=== PATIENT | female | born 1975 | race Caucasian/White ===

== ENCOUNTER 2019-06-14 16:33 | Inpatient (IN) | payer OTHER ==
[2019-06-14] MEDS ORDERED: SODIUM CHLORIDE 0.9% 1,000 ML IV STA ×2 (16:58→18:40)
[2019-06-14] MEDS ORDERED: LORazepam 2 MG/ML INJ IV STA ×2 (17:02→20:20)
[2019-06-14 17:38] LABS: Basophils % (A) 0 %; Eosinophils # (A) 0.1 k/uL (0-0.7); Eosinophils % (A) 1 %; HCT 45.8 % (34.0-46.0); Lymphocytes # (A) 1.5 k/uL (1.0-4.8); Lymphocytes % (A) 10 %; MCH 30.3 pg (25.0-35.0); MCHC 32.7 g/dL (31.0-37.0); MCV 92.8 fL (80.0-100.0); Mean Platelet Volume 7.3; Monocytes # (A) 0.8 k/uL (0-1.0); Monocytes % (A) 5 %; Neutrophils # (A) 13.5 k/uL (1.3-7.7); Neutrophils % (A) 84 %; Platelet Count 243 k/uL (150-450); RBC 4.94 m/uL (3.80-5.40); RDW 13.2 % (11.5-15.5); WBC 16.1 k/uL (3.8-10.6)
[2019-06-14 17:53] LABS: Amphetamine Screen,Urine Not Detected (NotDetected); Barbiturate Screen,Urine Not Detected (NotDetected); Benzodiazepines Screen,Urine Not Detected (NotDetected); Cocaine Screen,Urine Not Detected (NotDetected); Methadone Screen, Urine Not Detected (NotDetected); Opiate Screen,Urine Not Detected (NotDetected); Oxycodone Screen, Urine Not Detected (NotDetected); Phencyclidine Screen,Urine Not Detected (NotDetected); Tricyclic Antidepressant,Urine Not Detected (NotDetected); Urn Cannabinoid Scrn Not Detected (NotDetected)
[2019-06-14 17:55] LABS: ALT 65 U/L (9-52); AST 436 U/L (14-36); Acetaminophen <10.0 ug/mL; African American GFR (CKD) >90 (>60 ml/min/1.73 sqM); Albumin 4.6 g/dL (3.5-5.0); Alcohol <10 mg/dL; Alkaline Phosphatase 92 U/L (38-126); Anion Gap 8 mmol/L; Blood Urea Nitrogen 15 mg/dL (7-17); Calcium 9.9 mg/dL (8.4-10.2); Carbon Dioxide 25 mmol/L (22-30); Chloride 108 mmol/L (98-107); Glucose 108 mg/dL (74-99); Potassium 3.9 mmol/L (3.5-5.1); Salicylate <1.0 mg/dL; Sodium 141 mmol/L (137-145); Total Bilirubin 0.9 mg/dL (0.2-1.3); Total Protein 7.7 g/dL (6.3-8.2)
--- NOTE | 2019-06-14 18:01 | ED ---
Overdose HPI - General Chief Complaint: Overdose Stated Complaint: overdose Time Seen by Provider: 06/14/19 16:40 Source: patient, family Mode of arrival: ambulatory Limitations: no limitations - History of Present Illness Initial Comments: The patient is a 44-year-old female who presents to the emergency department after she took 50 sleep aid tablets at home last night at 10 PM. They are the [employer] brand Sleep-Aid for which the active ingredient is 50 mg of Benadryl. The patient went to sleep last night. The next thing she remembers is waking up at noon today on the floor. She was hallucinating at the time. She thought her had come from home from work because she thought people were in the house. She had palpitations and felt very hot. She is unsure if she hit her head. She is denying any pain. She does have ecchymosis noted to her left forearm and left hip. She states that she took these medications in an attempt to hurt herself. States she's been feeling depressed and wanted to . She was in therapy as a child. Denies any recent treatment for mental health issues. States that today she does not feel like hurting herself. She denies any homicidal ideations. States that the hallucinations have passed. She denies any headaches or visual changes. No neck pain or stiffness. No fevers or chills. Denies any chest pain or shortness of breath. She denies any abdominal pain, nausea or vomiting. Denies any changes in her urination to include dysuria, hematuria of difficulty voiding. Denies any changes in her bowel movements to include diarrhea constipation, melanotic stools or hematochezia. She did not take any other medications last night. Does not take any prescribed medications. Denies use of alcohol and ilicit drugs. There are no other alleviating, precipitating or modifying factors - Related Data Home Medications Medication Instructions Recorded Confirmed Ranitidine HCl [Zantac] 75 mg PO DAILY 06/14/19 06/14/19 Allergies Allergy/AdvReac Type Severity Reaction Status Date / Time No Known Allergies Allergy Verified 06/16/19 16:54 Review of Systems ROS Statement: Those systems with pertinent positive or pertinent negative responses have been documented in the HPI. ROS Other: All systems not noted in ROS Statement are negative. Past Medical History Past Medical History: No Reported History History of Any Multi-Drug Resistant Organisms: None Reported Past Surgical History: No Surgical Hx Reported Past Anesthesia/Blood Transfusion Reactions: No Reported Reaction Past Psychological History: No Psychological Hx Reported Smoking Status: Current every day smoker Past Alcohol Use History: Occasional Past Drug Use History: None Reported - Past Family History Mother Family Medical History: Cancer, Hypertension, Thyroid Disorder Father Family Medical History: Cancer, Hypertension General Exam Limitations: no limitations General appearance: alert, anxious Head exam: Present: atraumatic, normocephalic, normal inspection Eye exam: Present: normal appearance, EOMI, conjunctival injection. Absent: scleral icterus, periorbital swelling Pupils: Present: mydriatic ENT exam: Present: mucous membranes dry Neck exam: Present: normal inspection. Absent: tenderness, meningismus, lymphadenopathy Respiratory exam: Present: normal lung sounds bilaterally. Absent: respiratory distress, wheezes, rales, rhonchi, stridor Cardiovascular Exam: Present: normal rhythm, tachycardia, normal heart sounds. Absent: systolic murmur, diastolic murmur, rubs, gallop, clicks GI/Abdominal exam: Present: soft, normal bowel sounds. Absent: distended, tenderness, guarding, rebound, rigid Extremities exam: Present: full ROM, normal capillary refill, other (bruising left forearm. No tenderness to palpation. Compartments are soft. ). Absent: tenderness, pedal edema, joint swelling, calf tenderness Back exam: Present: normal inspection Neurological exam: Present: alert, oriented X3, CN II-XII intact Psychiatric exam: Present: depressed, anxious Skin exam: Present: warm, dry, intact, normal color, other (flushed face. Ecchymosis over left hip). Absent: rash Course Vital Signs 06/14/19 06/14/19 16:35 19:04 Temperature 98.1 F Pulse Rate 110 H 84 Respiratory 16 16 Rate Blood Pressure 164/106 149/90 O2 Sat by Pulse 97 98 Oximetry Medical Decision Making - Medical Decision Making Upon arrival the patient was placed into room 14. She was hooked up to continuous pulse ox and cardiac monitoring. A 12-lead EKG was performed which demonstrated a normal sinus rhythm without a widened QRS. We did obtain IV access. The patient was given a 2 L bolus of 0.9 % normal saline and started on the 150 mL per hour. We did call poison control. They did recommend 2 g of magnesium. This medication was provided the patient. They recommended that she should have a urine output of 2-3 mL/kg per hour. Benzos should also be used for agitation. I did provide the patient with 1 mg of Ativan. She then required a second dose after 2 hours. Laboratory studies were conducted. The patient does have an elevated CPK at 34,712. She also has elevated liver enzymes and a white count of 16,000. I did discuss results with the patient. She became more comfortable in the examination room. I did recommend admission to the hospital for which the patient did agree. I will consult social work and psychiatry. I called and discussed the case with Dr. Stephenson who did accept admission of the patient. Elopement and suicide precautions were ordered. The patient did remain in stable condition and was transported to the floor. - Differential Diagnosis acute suicide attempt, benadryl overdose, rhabdo, depression - Lab Data Result diagrams: 06/15/19 06:29 06/16/19 05:23 Lab Results 06/14/19 06/14/19 06/14/19 Range/Units 17:20 17:20 17:20 WBC 16.1 H (3.8-10.6) k/uL RBC 4.94 (3.80-5.40) m/uL Hgb 15.0 (11.4-16.0) gm/dL Hct 45.8 (34.0-46.0) % MCV 92.8 (80.0-100.0) fL MCH 30.3 (25.0-35.0) pg MCHC 32.7 (31.0-37.0) g/dL RDW 13.2 (11.5-15.5) % Plt Count 243 (150-450) k/uL Neutrophils % 84 % Lymphocytes % 10 % Monocytes % 5 % Eosinophils % 1 % Basophils % 0 % Neutrophils # 13.5 H (1.3-7.7) k/uL Lymphocytes # 1.5 (1.0-4.8) k/uL Monocytes # 0.8 (0-1.0) k/uL Eosinophils # 0.1 (0-0.7) k/uL Basophils # 0.0 (0-0.2) k/uL Sodium 141 (137-145) mmol/L Potassium 3.9 (3.5-5.1) mmol/L Chloride 108 H (98-107) mmol/L Carbon Dioxide 25 (22-30) mmol/L Anion Gap 8 mmol/L BUN 15 (7-17) mg/dL Creatinine 0.77 (0.52-1.04) mg/dL Est GFR (CKD-EPI)AfAm >90 (>60 ml/min/1.73 sqM) Est GFR (CKD-EPI)NonAf >90 (>60 ml/min/1.73 sqM) Glucose 108 H (74-99) mg/dL Plasma Lactic Acid Dion (0.7-2.0) mmol/L Calcium 9.9 (8.4-10.2) mg/dL Magnesium (1.6-2.3) mg/dL Total Bilirubin 0.9 (0.2-1.3) mg/dL AST 436 H (14-36) U/L ALT 65 H (9-52) U/L Alkaline Phosphatase 92 (38-126) U/L Creatine Kinase 79436 H* (30-135) U/L Total Protein 7.7 (6.3-8.2) g/dL Albumin 4.6 (3.5-5.0) g/dL Urine HCG, Qual (Not Detectd) Salicylates <1.0 mg/dL Urine Opiates Screen Not Detected (NotDetected) Ur Oxycodone Screen Not Detected (NotDetected) Urine Methadone Screen Not Detected (NotDetected) Ur Propoxyphene Screen Not Detected (NotDetected) Acetaminophen <10.0 ug/mL Ur Barbiturates Screen Not Detected (NotDetected) U Tricyclic Antidepress Not Detected (NotDetected) Ur Phencyclidine Scrn Not Detected (NotDetected) Ur Amphetamines Screen Not Detected (NotDetected) U Methamphetamines Scrn Not Detected (NotDetected) U Benzodiazepines Scrn Not Detected (NotDetected) Urine Cocaine Screen Not Detected (NotDetected) U Marijuana (THC) Screen Not Detected (NotDetected) Serum Alcohol <10 mg/dL 06/14/19 06/14/19 06/14/19 Range/Units 17:20 17:20 17:20 WBC (3.8-10.6) k/uL RBC (3.80-5.40) m/uL Hgb (11.4-16.0) gm/dL Hct (34.0-46.0) % MCV (80.0-100.0) fL MCH (25.0-35.0) pg MCHC (31.0-37.0) g/dL RDW (11.5-15.5) % Plt Count (150-450) k/uL Neutrophils % % Lymphocytes % % Monocytes % % Eosinophils % % Basophils % % Neutrophils # (1.3-7.7) k/uL Lymphocytes # (1.0-4.8) k/uL Monocytes # (0-1.0) k/uL Eosinophils # (0-0.7) k/uL Basophils # (0-0.2) k/uL Sodium (137-145) mmol/L Potassium (3.5-5.1) mmol/L Chloride (98-107) mmol/L Carbon Dioxide (22-30) mmol/L Anion Gap mmol/L BUN (7-17) mg/dL Creatinine (0.52-1.04) mg/dL Est GFR (CKD-EPI)AfAm (>60 ml/min/1.73 sqM) Est GFR (CKD-EPI)NonAf (>60 ml/min/1.73 sqM) Glucose (74-99) mg/dL Plasma Lactic Acid Dion 1.0 (0.7-2.0) mmol/L Calcium (8.4-10.2) mg/dL Magnesium 2.3 (1.6-2.3) mg/dL Total Bilirubin (0.2-1.3) mg/dL AST (14-36) U/L ALT (9-52) U/L Alkaline Phosphatase (38-126) U/L Creatine Kinase (30-135) U/L Total Protein (6.3-8.2) g/dL Albumin (3.5-5.0) g/dL Urine HCG, Qual Not Detected (Not Detectd) Salicylates mg/dL Urine Opiates Screen (NotDetected) Ur Oxycodone Screen (NotDetected) Urine Methadone Screen (NotDetected) Ur Propoxyphene Screen (NotDetected) Acetaminophen ug/mL Ur Barbiturates Screen (NotDetected) U Tricyclic Antidepress (NotDetected) Ur Phencyclidine Scrn (NotDetected) Ur Amphetamines Screen (NotDetected) U Methamphetamines Scrn (NotDetected) U Benzodiazepines Scrn (NotDetected) Urine Cocaine Screen (NotDetected) U Marijuana (THC) Screen (NotDetected) Serum Alcohol mg/dL - EKG Data EKG Comments: EKG demonstrates a normal sinus rhythm with a ventricular rate of 84. ID interval 150. QRS E4. QTC 496. There are no acute ST segment elevations or depressions concerning for ischemic changes. No widened QRS Disposition Clinical Impression: Transaminitis, Rhabdomyolysis, Leukocytosis, Anticholinergic drug overdose, Suicide attempt Disposition: ADMITTED IP TO THIS HOSP Condition: Serious Is patient prescribed a controlled substance at d/c from ED?: No Decision to Admit Reason: Admit from EC Decision Date: 06/14/19 Decision Time: 19:53
[2019-06-14 18:19] LABS: Creatine Kinase 34712 U/L (30-135)
[2019-06-14] MEDS: MAGNESIUM SULFATE-D5W PMX 1 GM in DEXTROSE/WATER 1 100ML.BAG IVPB SCH ×2 (18:57→20:13)
--- NOTE | 2019-06-14 19:21 | XR ---
PROCEDURE: XR pelvis AP view - 1V DATE AND TIME: 06/14/2019 6:48 PM CLINICAL INDICATION: PHH; Pain TECHNIQUE: AP view COMPARISON: None FINDINGS: There is no fracture or malalignment. The soft tissues are unremarkable. IMPRESSION: NO ACUTE PROCESS.
--- NOTE | 2019-06-14 19:22 | XR ---
EXAMINATION: XR chest 2V DATE AND TIME: 06/14/2019 6:48 PM CLINICAL INDICATION: PHH; Cough/pain TECHNIQUE: Departmental protocol COMPARISON: None FINDINGS: The lungs are clear. The pleural spaces are negative. The cardiac silhouette is not enlarged. The remainder of the mediastinal silhouette is unremarkable. The skeletal structures and soft tissues are negative for acute findings. IMPRESSION: NO ACUTE PROCESS.
--- NOTE | 2019-06-14 19:23 | XR ---
PROCEDURE: XR forearm LT - 2V DATE AND TIME: 06/14/2019 6:48 PM CLINICAL INDICATION: PHH; Pain TECHNIQUE: Department protocol COMPARISON: None FINDINGS: There is no fracture or malalignment. The soft tissues are unremarkable. IMPRESSION: NO ACUTE PROCESS.
--- NOTE | 2019-06-14 19:24 | XR ---
PROCEDURE: XR elbow complete LT - 3V DATE AND TIME: 06/14/2019 6:48 PM CLINICAL INDICATION: PHH; Pain TECHNIQUE: Department protocol COMPARISON: None FINDINGS: There is no fracture or malalignment. The soft tissues are unremarkable. IMPRESSION: NO ACUTE PROCESS.
[2019-06-14] MEDS ORDERED: NALOXONE 0.4 MG/ML 1 ML VIAL IV PRN (20:18)
[2019-06-14] MEDS ORDERED: NICOTINE 21MG/24HR PATCH TRANSDERM STA (20:20)
--- NOTE | 2019-06-14 21:05 | P.HPIM ---
History of Present Illness H&P Date: 06/14/19 The patient is a 44-year-old female with a past medical history of acid reflux who presents to the ER via private vehicle with chief complaint of overdose. Apparently the patient at approximately 11 PM last evening took fifty 50 milligram capsules of BenadrylEF in attempt of the drug overdose. The patient woke up this morning feeling groggy extremely fatigued and tired also confused , she was apparently hallucinating talking to family members that weren't there, she also complained of lightheadedness and blurry vision currently the patient is denying abdominal pain nausea or vomiting. The patient is complaining of muscle aches and reported some falls with without any head trauma, myalgias are located in her bilateral knees lower back and shoulders and elbows. The patient denies any significant psychiatric history, but reports increased psychosocial stressors including being unemployed for the last 6 month, recent loss of her mother 2 months ago and other increasing financial difficulties. The patient's found her home tremulous and agitated and subsequently brought her to the ER. In the ER the patient had a comprehensive workup white count was 16.1, serum so dium was 141 potassium 3.9, creatinine 0.77, serum bicarb 25, AST 436 ALT 65, total creatinine kinase 78520. Her UDS was negative Past Medical History Past Medical History: No Reported History History of Any Multi-Drug Resistant Organisms: None Reported Past Surgical History: No Surgical Hx Reported Past Psychological History: No Psychological Hx Reported Smoking Status: Current every day smoker Past Alcohol Use History: Occasional Past Drug Use History: None Reported - Past Family History Mother Family Medical History: Cancer, Hypertension, Thyroid Disorder Father Family Medical History: Cancer, Hypertension Medications and Allergies Home Medications Medication Instructions Recorded Confirmed Type Ibuprofen [Advil] 200 mg PO DAILY PRN 06/14/19 06/14/19 History Ranitidine HCl [Zantac] 75 mg PO DAILY 06/14/19 06/14/19 History Allergies Allergy/AdvReac Type Severity Reaction Status Date / Time No Known Allergies Allergy Verified 06/14/19 17:09 Physical Exam Vitals: Vital Signs Temp Pulse Resp BP Pulse Ox 06/14/19 19:04 84 16 149/90 98 06/14/19 16:35 98.1 F 110 H 16 164/106 97 Intake and Output 06/14/19 06/14/19 06/14/19 06:59 14:59 22:59 Other: Weight 72.575 kg Constitutional: No acute distress, conversant, pleasant Eyes: Anicteric sclerae, moist conjunctiva, no lid-lag, PERRLA ENMT: NC/AT,Oropharynx clear, no erythema, exudates Neck:Supple, FROM, no masses, or JVD, No carotid bruits; No thyromegaly Lungs: Clear to auscultation, Clear to percussion, Normal respiratory effort, no accessory muscle use Cardiovascular: Heart regular in rate and rhythm, No murmurs, gallops, or rubs no peripheral edema Abdominal: Soft Nontender, nom distended, no guarding, no rebound or rigidity, Normoactive bowel sounds No hepatomegaly, No splenomegaly, No palpable mass No abdominal wall hernia noted Skin: mild bruising around the knees, Extremities:No digital cyanosis No clubbing, Pedal pulses intact and symmetrical Radial pulses intact and symmetrical Normal gait and station, No calf tenderness Psychiatric: Alert and oriented to person, place and time, Appropriate affect Intact judgement Neuro: Muscles Strength 5/5 in all 4 extremities, Sensation to light touch grossly present throughout, Cranial nerves II-XII grossly intact. No focal sensory deficits Results CBC & Chem 7: 06/15/19 06:29 06/15/19 06:29 Labs: Abnormal Lab Results - Last 24 Hours (Table) 06/14/19 06/14/19 Range/Units 17:20 17:20 WBC 16.1 H (3.8-10.6) k/uL Neutrophils # 13.5 H (1.3-7.7) k/uL Chloride 108 H (98-107) mmol/L Glucose 108 H (74-99) mg/dL AST 436 H (14-36) U/L ALT 65 H (9-52) U/L Creatine Kinase 63943 H* (30-135) U/L Assessment and Plan (1) Rhabdomyolysis Current Visit: Yes Status: Acute Code(s): M62.82 - RHABDOMYOLYSIS SNOMED Code(s): 005193346 (2) Suicide attempt Current Visit: Yes Status: Acute Code(s): T14.91XA - SUICIDE ATTEMPT, INI TIAL ENCOUNTER SNOMED Code(s): 49188796 (3) Leukocytosis Current Visit: Yes Status: Acute Code(s): D72.829 - ELEVATED WHITE BLOOD CELL COUNT, UNSPECIFIED SNOMED Code(s): 929878188 (4) Transaminitis Current Visit: Yes Status: Acute Code(s): R74.0 - NONSPEC ELEV OF LEVELS OF TRANSAMNS & LACTIC ACID DEHYDRGNSE SNOMED Code(s): 689896675 (5) Anticholinergic drug overdose Current Visit: Yes Status: Acute Code(s): T44.3X1A - POISONING BY OTH PARASYMPATH AND SPASMOLYTICS, ACC, INIT SNOMED Code(s): 482245445 Plan: Patient is admitted anticipated greater than 2 midnight stay with acute rhabdomyolysis secondary to drug overdose/anticholinergic toxemia and suicidal patient. The patient's renal function is currently stable at this time with no noted acidosis the patient was started on aggressive IV fluids with supportive regimen of Tylenol and Zofran for pain and nausea respectively. Poison control contacted from the ER recommending stable potassium levels greater than 4 and calcium levels greater than 9.5 and magnesium levels greater than 2 we'll replenish accordingly .The patient is placed on one-to-one clinical safety manager with plans for psychiatry consultation in the morning. Patient also has noted transaminitis right upper quadrant ultrasound, PT INR and acute hepatic panel ordered. Continue aggressive hydration will continue to follow. CODE STATUS: Full code Discussed plan of care with: Patient and her Anticipated discharge 2-[address]: Home Prophylaxis: Heparin
[2019-06-14] MEDS: SODIUM CHLORIDE 0.9% 1,000 ML IV SCH (21:40)
[2019-06-14 22:21] VITALS: BMI 24.3
[2019-06-15 00:44] LABS: ALT 63 U/L (9-52); AST 379 U/L (14-36); African American GFR (CKD) >90 (>60 ml/min/1.73 sqM); Albumin 3.3 g/dL (3.5-5.0); Alkaline Phosphatase 67 U/L (38-126); Anion Gap 4 mmol/L; Blood Urea Nitrogen 10 mg/dL (7-17); Calcium 8.3 mg/dL (8.4-10.2); Carbon Dioxide 23 mmol/L (22-30); Chloride 112 mmol/L (98-107); Glucose 75 mg/dL (74-99); Magnesium 2.6 mg/dL (1.6-2.3); Potassium 3.8 mmol/L (3.5-5.1); Sodium 139 mmol/L (137-145); Total Bilirubin 0.8 mg/dL (0.2-1.3); Total Protein 5.9 g/dL (6.3-8.2)
[2019-06-15] MEDS ORDERED: ONDANSETRON 4 MG/2 ML VIAL IVP PRN (00:47)
[2019-06-15] MEDS ORDERED: Potassium Replacement Protocol 1 EACH MISC MISCELLANE PRN (01:08)
[2019-06-15] MEDS ORDERED: CALCIUM GLUCONATE 2 GM in SODIUM CHLORIDE 0.9% 100 ML IVPB ONE (01:09)
[2019-06-15 01:16] LABS: Creatine Kinase 27698 U/L (30-135)
[2019-06-15] MEDS: POTASSIUM CHLORIDE 10 MEQ in WATER FOR INJECTION 1 100ML.BAG IVPB SCH ×4 (01:16→04:37)
[2019-06-15 01:34] LABS: Prothrombin Time 10.3 sec (9.0-12.0)
[2019-06-15] MEDS: LORazepam 2 MG/ML INJ IV PRN ×2 (05:47→23:00)
[2019-06-15] MEDS: SODIUM CHLORIDE 0.9% 1,000 ML IV SCH ×3 (05:57→14:05)
[2019-06-15 07:10] LABS: Basophils % (A) 0 %; Eosinophils # (A) 0.1 k/uL (0-0.7); Eosinophils % (A) 2 %; HCT 40.4 % (34.0-46.0); HGB 12.8 gm/dL (11.4-16.0); Lymphocytes # (A) 2.5 k/uL (1.0-4.8); Lymphocytes % (A) 28 %; MCH 29.8 pg (25.0-35.0); MCHC 31.6 g/dL (31.0-37.0); Mean Platelet Volume 7.1; Monocytes # (A) 0.4 k/uL (0-1.0); Monocytes % (A) 4 %; Neutrophils # (A) 5.8 k/uL (1.3-7.7); Neutrophils % (A) 64 %; Platelet Count 187 k/uL (150-450); RDW 13.2 % (11.5-15.5)
[2019-06-15 07:17] LABS: ALT 64 U/L (9-52); AST 319 U/L (14-36); African American GFR (CKD) >90 (>60 ml/min/1.73 sqM); Albumin 3.2 g/dL (3.5-5.0); Alkaline Phosphatase 68 U/L (38-126); Anion Gap 4 mmol/L; Blood Urea Nitrogen 8 mg/dL (7-17); Calcium 8.4 mg/dL (8.4-10.2); Carbon Dioxide 23 mmol/L (22-30); Chloride 111 mmol/L (98-107); Glucose 94 mg/dL (74-99); Magnesium 2.4 mg/dL (1.6-2.3); Potassium 4.3 mmol/L (3.5-5.1); Sodium 138 mmol/L (137-145); Total Bilirubin 0.9 mg/dL (0.2-1.3); Total Protein 5.7 g/dL (6.3-8.2)
[2019-06-15 07:57] LABS: Creatine Kinase 19309 U/L (30-135)
--- NOTE | 2019-06-15 07:58 | US ---
EXAMINATION TYPE: US abdomen limited DATE OF EXAM: 06/15/2019 COMPARISON: NONE CLINICAL HISTORY: Transaminitis. elevated liver enzymes EXAM MEASUREMENTS: Liver Length: 18.1 cm Gallbladder Wall: 0.2 cm CBD: 0.4 cm Right Kidney: 10.7 x 3.9 x 4.0 cm Pancreas: duct = 0.16cm Liver: Upper limits of normal but homogeneous. No focal mass is seen. Gallbladder: no evidence of stones Evidence for sonographic Ballard's sign: no CBD: wnl Right Kidney: no evidence of hydronephrosis IMPRESSION: Despite transaminitis the hepatic echotexture appears homogeneous and unremarkable. No fo cece hepatic mass is seen. The liver is upper limits of normal in size.
[2019-06-15] MEDS: FAMOTIDINE 20 MG TAB PO SCH (10:08)
[2019-06-15] MEDS: HEPARIN SODIUM,PORCINE 5,000 UNIT/ML 1 ML VIAL SQ SCH ×2 (10:08→22:54)
--- NOTE | 2019-06-15 11:49 | P.PN ---
Subjective Progress Note Date: 06/15/19 Principal diagnosis: overdose Patient is a 44-year-old female with a past medical history of acid reflux and tobacco abuse who presented to ER with complaint of overdose. Apparently she took multiple capsules of Benadryl and attempt for drug overdose. She woke up groggy and confused. The emergency department she underwent an extensive evaluation. On arrival she was tachycardic with a heart rate of 110 and hypertensive with blood pressure 164/106. Initial laboratory analysis showed a white blood count blood count of 16.1, elevated AST of 436, elevated ALT of 65, CPK of approximately 35,000. Urine drug screen was negative, hCG negative. She underwent a chest x-ray, left elbow x-ray, pelvic x-ray, and left forearm all which were negative. She was started on IV fluids and admitted for further monitoring of her rhabdo. They were initially concerned about her elevated liver enzymes that she underwent abdominal ultrasound was essentially unremarkable. AST elevation is likely reflective of rhabdo and not hepatic etiology. Patient seen and examined at bedside. She is having significant amounts of dry mouth, no issues with dry eyes. She is having frequent urination but no issues with urinary retention. She is having normal bowel movements. She denies any chest pain or shortness rest. She is feeling very remorseful of her overdose. We discussed at length that she still has an prolonged QT interval required continue cardiac monitoring. She likely will be medically stable for discharge in the morning and will require psychiatric evaluation. Objective - Vital Signs Vital signs: Vital Signs Temp 98.4 F 06/15/19 08:15 Pulse 103 H 06/15/19 08:15 Resp 18 06/15/19 08:15 BP 146/94 06/15/19 08:15 Pulse Ox 96 06/15/19 08:15 Intake & Output 06/14/19 06/15/19 06/15/19 18:59 06:59 18:59 Intake Total 850 118 Output Total 400 Balance 450 118 Weight 72.575 kg 75.7 kg Intake: Intake, IV Titration 850 Amount Magnesium Sulfate-D5w Pmx 200 1 gm In Dextrose/Water 1 100ml.bag @ 100 mls/hr IVPB Q1H [facility] Rx#: [id number] Potassium Chloride 10 meq 400 In Water For Injection 1 100ml.bag @ 100 mls/hr IVPB Q1HR [facility] Rx#: [id number] Sodium Chloride 0.9% 1, 250 000 ml @ 250 mls/hr IV . Q4H [facility] Rx#:[id number] Oral 118 Output: Urine 400 Other: Voiding Method Toilet Toilet - Exam General: Ill-appearing, no distress, appears at stated age Derm: warm, dry Head: atraumatic, normocephalic, symmetric Eyes: EOMI, no lid lag, anicteric sclera Mouth: no lip lesion, mucus membranes dry Cardiovascular: S1 and S2 tachycardic, no murmur, positive posterior tibial pulse bilateral, Lungs: Decreased breath sounds bilateral, no rhonchi, no rales , no accessory muscle use Abdominal: soft, nontender to palpation, no guarding, no appreciable organomegaly Ext: no gross muscle atrophy, no edema, no contractures Neuro: CN II-XI grossly intact, no focal neuro deficits Psych: Alert, oriented, appears upset and mild tremor - Labs CBC & Chem 7: 06/15/19 06:29 06/15/19 06:29 Labs: Abnormal Lab Results - Last 24 Hours (Table) 06/14/19 06/14/19 06/15/19 Range/Units 17:20 17:20 00:02 WBC 16.1 H (3.8-10.6) k/uL Neutrophils # 13.5 H (1.3-7.7) k/uL Chloride 108 H 112 H (98-107) mmol/L Glucose 108 H (74-99) mg/dL Calcium 8.3 L (8.4-10.2) mg/dL Magnesium 2.6 H (1.6-2.3) mg/dL AST 436 H 379 H (14-36) U/L ALT 65 H 63 H (9-52) U/L Creatine Kinase 03176 H* 23324 H* (30-135) U/L Total Protein 5.9 L (6.3-8.2) g/dL Albumin 3.3 L (3.5-5.0) g/dL 06/15/19 Range/Units 06:29 WBC (3.8-10.6) k/uL Neutrophils # (1.3-7.7) k/uL Chloride 111 H (98-107) mmol/L Glucose (74-99) mg/dL Calcium (8.4-10.2) mg/dL Magnesium 2.4 H (1.6-2.3) mg/dL AST 319 H (14-36) U/L ALT 64 H (9-52) U/L Creatine Kinase 63213 H* (30-135) U/L Total Protein 5.7 L (6.3-8.2) g/dL Albumin 3.2 L (3.5-5.0) g/dL Assessment and Plan Assessment: Anticholinergic overdose with suicide attempt, using Benadryl -Continue with IV fluids -Monitor for continue anticholinergic side effects -Continue to monitor EKG -Suicide precautions, psychiatric consultation Rhabdomyolysis -Repeat CPK in a.m. -IV fluids -Follow BMP in a.m. Transaminitis, secondary to rhabdo -IV fluids -Repeat CMP in a.m. -Abdominal ultrasound revealing Tobacco abuse -Cessation -Nicotine replacement Hypokalemia and hypo-aphemia -Replace and recheck in a.m. DVT prophylaxis: Heparin Discussed with: patient, , nursing Anticipated discharge: 1-[address]: [facility] A total of 35 minutes was spent on the care of this complex patient more than 50% of the time was spent in counseling and care coordination.
[2019-06-15] MEDS ORDERED: CALCIUM GLUCONATE 1 GM in SODIUM CHLORIDE 0.9% 100 ML IVPB ONE (12:30)
--- NOTE | 2019-06-15 15:01 | P.CN ---
Psychiatric Consult - . Consult date: 06/15/19 Consult:: 06/15/19 DATE OF SERVICE: 06/15/2019 IDENTIFYING DATA: This patient is a 44-year-old female who is and lives with her and her 25-year-old daughter and is currently unemployed. HISTORY OF PRESENT ILLNESS: The patient presented to the hospital after an overdose of 50 sleep aid tablets, Benadryl, which she took on the afternoon of June 13. Patient states that she has been dealing with several stressors over the past year including financial difficulties and [facility] She also endorses having her mother and her daughter moved back in the house with her. She states that her mother in January of this year and still dealing with the loss. Patient states that she is also having menopausal symptoms and feelings as her "hormones are out of wack". Patient states that her depression has been increasing over the past few months and feels "empty inside". Patient also endorses an increase her in her anxiety and increase in suicidal ideations. She states that on Wednesday at around 10:00 AM she decided that she was going to overdose on her medications and wanted to end her life. She states that she remembers waking up at approximately 12 PM and hallucinating that her was in the house and that she was disoriented and could not stand up. Patient's found her lying on the floor and called EMS. Throughout the interview patient was tearful and appeared anxious however was calm and cooperative. She states that her depression is persistent and she feels hopeless. At this time patient still has suicidal ideations however does not have any intent or plan. She denies any homicidal ideations intent or plan and denies any auditory or visual hallucinations. She denies any paranoia and does not endorse any delusions. PAST PSYCHIATRIC HISTORY: Patient claims that she was in therapy when she was 11 years old. She denies any previous psychiatric hospitalization and denies being on any psychiatric meds in the past. PAST MEDICAL HISTORY: Denies. ALLERGIES: [No known drug allergies]. CHEMICAL DEPENDENCY HISTORY: Admits to smoking one pack of cigarettes per day. Denies any other recreational drugs and denies any alcohol use. FAMILY PSYCHIATRIC HISTORY: He claims that her brother and sister both have some sort of mental illness however claims that there are not diagnosed.. LEGAL HISTORY: Denies. SOCIAL HISTORY: Patient grew up in [facility] and now lives in [facility]. Patient is and has 1 daughter and lives in a house, currently unemployed. Patient states that she completed high school and went to [employer] however did not obtain a degree MENTAL STATUS EXAM: General Appearance: Patient is sitting in bed with hospital gown. To have poor grooming and fair hygiene tearful however is calm and cooperative. Patient appears her stated age Behavior: Patient appears restless in her bed however is cooperative. Speech: Patient's speech is fluent and nonpressured. Mood/Affect: Patient reports their mood is depressed, affect is congruent and constricted Suicidality/Homicidality: Patient admits to fleeting suicidal ideations however no intent or plan currently. She denies any homicidal ideations intent or plan. Perceptions: Patient denies any auditory or visual hallucinations. Though content/process: There is no evidence of any delusional thought content and thought process is linear and goal-directed. Memory and concentration: AOX3, grossly intact for the purposes of this session. Can spell WORLD backwards. Judgment and insight: Poor IMPRESSIONS: [Major depressive disorder, moderate-severe Nicotine use disorder] PLAN: -At this time patient patient DOES meet criteria for inpatient psychiatric admission.] -Would recommend the following medication changes/additions: Will hold off on starting an antidepressant at this time given patient's elevated CPK and extensive liver injury. Okay to give 1 mg Ativan at night when necessary for sleep difficulties. -[Continue 1:1 sitter for safety] -[Cannot leave AMA at this time. Patient will need a petition and certification if attempting to leave AMA.] -[When medically stable, patient is eligible for transfer to a psych bed when available. Please arrange with social organization professor for bed.] -Spoke with social organization professor and dependency case manager and gave recommendations. Patient is on board with plan for transfer when medically stable. Thank you for the consult, please call [phone] with any questions 06/15/19 14:40 06/15/19 14:53
[2019-06-15] MEDS: NICOTINE 21MG/24HR PATCH TRANSDERM SCH (18:51)
[2019-06-16] MEDS: SODIUM CHLORIDE 0.9% 1,000 ML IV SCH (04:43)
[2019-06-16 06:16] LABS: ALT 74 U/L (9-52); AST 283 U/L (14-36); African American GFR (CKD) >90 (>60 ml/min/1.73 sqM); Alkaline Phosphatase 60 U/L (38-126); Anion Gap 4 mmol/L; Blood Urea Nitrogen 6 mg/dL (7-17); Calcium 8.6 mg/dL (8.4-10.2); Carbon Dioxide 24 mmol/L (22-30); Chloride 110 mmol/L (98-107); Glucose 97 mg/dL (74-99); Magnesium 1.9 mg/dL (1.6-2.3); Sodium 138 mmol/L (137-145); Total Bilirubin 0.5 mg/dL (0.2-1.3); Total Protein 5.5 g/dL (6.3-8.2)
[2019-06-16 07:30] LABS: Creatine Kinase 11248 U/L (30-135)
[2019-06-16] MEDS: HEPARIN SODIUM,PORCINE 5,000 UNIT/ML 1 ML VIAL SQ SCH (08:19)
[2019-06-16] MEDS: FAMOTIDINE 20 MG TAB PO SCH (08:19)
[2019-06-16] MEDS: NICOTINE 21MG/24HR PATCH TRANSDERM SCH (08:19)
[2019-06-16 08:24] VITALS: RESP 16; TEMP 98
--- NOTE | 2019-06-16 09:30 | P.DS ---
Providers Date of admission: 06/14/19 20:18 Expected date of discharge: 06/16/19 Attending physician: Hao Stephenson MD Consults: 06/14/19 20:21 Consult Physician Urgent Consulting Provider: Kang Cortes Consult Reason/Comments: intentional benadryl overdose Do you want consulting provider notified?: Yes, Notify in am Primary care physician: Stated None Hospital Course: Discharge Diagnosis: suicide attempt Anticholinergic overdose Rhabdomyolysis Transaminitis Hypocalcemia Hospital Course: Patient is a 44-year-old female with a past medical history of acid reflux and tobacco abuse who presented to ER with complaint of overdose. Apparently she took multiple capsules of Benadryl in a suicide attempt. She woke up groggy and confused. The emergency department she underwent an extensive evaluation. On arrival she was tachycardic with a heart rate of 110 and hypertensive with blood pressure 164/106. Initial laboratory analysis showed a white blood count blood count of 16.1, elevated AST of 436, elevated ALT of 65, CPK of approximately 35,000. Urine drug screen was negative, hCG negative. She underwent a chest x-ray, left elbow x-ray, pelvic x-ray, and left forearm all which were negative. She was started on IV fluids and admitted for further monitoring of her rhabdo. They were initially concerned about her elevated liver enzymes that she underwent abdominal ultrasound was essentially unremarkable. AST elevation is likely reflective of rhabdo and not hepatic etiology. Her CPK and transaminits improved. Her dry mouth, hallucinations, and constipation improved. Her CPK had decreased from 34,712 to 57221 and her CR remained stable. She had good oral intake and was feeling much improved. She was determined stable for discharge to mental health. She will continue oral hydration. She will have a repeat CPK in the morning. She had been seen by psych on 06/15 and mental health admission was recommended. Patient seen and examined at bedside. No chest pain, shortness of breath, Vital signs reviewed and stable. General: non toxic, no distress, appears at stated age Derm: warm, dry Head: atraumatic, normocephalic, symmetric Eyes: EOMI, no lid lag, anicteric sclera Mouth: no lip lesion, mucus membranes moist Cardiovascular: S1S2 reg, no murmur, positive posterior tibial pulse bilateral, Lungs: CTA bilateral, no rhonchi, no rales , no accessory muscle use Abdominal: soft, nontender to palpation, no guarding, no appreciable organomegaly Ext: no gross muscle atrophy, no edema, no contractures Neuro: CN II-XI grossly intact, no focal neuro deficits Psych: Alert, oriented, appropriate affect A total of 25 minutes of time were spent preparing this complex discharge summary . Patient Condition at Discharge: Stable Plan - Discharge Summary New Discharge Prescriptions: Continue Ranitidine HCl [Zantac] 75 mg PO DAILY Discontinued Ibuprofen [Advil] 200 mg PO DAILY PRN PRN Reason: Pain Discharge Medication List Ranitidine HCl [Zantac] 75 mg PO DAILY 06/14/19 [History] Follow up Appointment(s)/Referral(s): None,Stated [Primary Care Provider] - 1-2 days Activity/Diet/Wound Care/Special Instructions: Regular diet, increase water intake for goal of 64-80 ounces daily for the next 4 days Activity: as tolerated Repeat CPK in AM
[2019-06-16 13:39] VITALS: BP 135/87; PULSE 87
== END 2019-06-16 15:34 | DRG 918 ==
LOC: EC 16:33 → 3SCARD 20:18
PROVIDERS: ADMIT Family Medicine; ATTEND Family Medicine
DX: T45.0X2A Poisoning by antiallergic and antiemetic drugs, intentional self-harm, initial encounter (principal); M62.82 Rhabdomyolysis; F33.2 Major depressive disorder, recurrent severe without psychotic features; R44.3 Hallucinations, unspecified; F17.200 Nicotine dependence, unspecified, uncomplicated; D72.829 Elevated white blood cell count, unspecified; R74.0 Nonspecific elevation of levels of transaminase and lactic acid dehydrogenase [LDH]; E83.51 Hypocalcemia; E87.6 Hypokalemia; K21.9 Gastro-esophageal reflux disease without esophagitis; K59.00 Constipation, unspecified; Z82.49 Family history of ischemic heart disease and other diseases of the circulatory system; Z80.9 Family history of malignant neoplasm, unspecified; Z83.49 Family history of other endocrine, nutritional and metabolic diseases
CPT/HCPCS: 36415; 71046; 72170; 76705; 80053; 80074; 80306; 80320; 80329; 81025; 82550; 83520; 83605; 83735; 85025; 85610; 93005; 96361; 96365; 96366; 96375; 96376; 99285

== ENCOUNTER 2019-06-16 15:20 | Inpatient (IN) | payer OTHER ==
[2019-06-16] MEDS ORDERED: MAGNESIUM HYDROXIDE 2,400 MG/10 ML CUP PO PRN (15:58)
[2019-06-16] MEDS ORDERED: ACETAMINOPHEN TAB 325 MG TAB PO PRN (15:58)
[2019-06-16] MEDS ORDERED: LORazepam 1 MG TAB PO PRN (15:58)
[2019-06-16] MEDS ORDERED: MAG HYDROX/AL HYDROX/SIMETH 30 ML CUP PO PRN (15:58)
[2019-06-16 16:10] VITALS: BMI 25.4
[2019-06-16] MEDS ORDERED: traZODone HCL 50 MG TAB PO PRN (16:26)
[2019-06-16] MEDS ORDERED: IBUPROFEN 600 MG TAB PO PRN (16:37)
--- NOTE | 2019-06-16 16:38 | P.HP ---
Psychiatric H&P - . H&P Date: 06/16/19 History & Physical: Allergies Allergy/AdvReac Type Severity Reaction Status Date / Time No Known Allergies Allergy Verified 06/14/19 17:09 Intake & Output 06/15/19 06/16/19 06/16/19 18:59 06:59 18:59 Weight 76 kg 06/16/19 16:05 IDENTIFYING DATA: This patient is a 44-year-old female who is and lives with her and her 25-year-old daughter and is currently unemployed. HISTORY OF PRESENT ILLNESS: The patient was admitted to the mental health unit as a transfer from the medical floors after an overdose at at home leading to significant hepatic and muscle injury along with anticholinergic symptoms. Patient presented to the hospital after an overdose of 50 sleep aid tablets, Benadryl, which she took on the afternoon of June 13. She spoke of dealing with several stressors over the past year including financial difficulties and a recent move from the [facility] to a [facility]. She also endorses having her mother and her daughter moved back in the house with her. She states that her mother in January of this year and still dealing with the loss. Patient states that she is also having menopausal symptoms and feelings as her "hormones are out of wack". Patient states that her depression has been increasing over the past few months and feels "empty inside". Patient also endorses an increase her in her anxiety and increase in suicidal ideations. She stated that on Wednesday at around 10:00 AM she decided that she was going to overdose on her medications and wanted to end her life. She states that she remembers waking up at approximately 12 PM and hallucinating that her was in the house and that she was disoriented and could not stand up. Patient's found her lying on the floor and called EMS. Patient was tearful and appeared anxious however was calm and cooperative. She states that her depression is persistent and she feels hopeless. At this time patient still has suicidal ideations however does not have any intent or plan. She denies any homicidal ideations intent or plan and denies any auditory or visual hallucinations. She denies any paranoia and does not endorse any delusions. PAST PSYCHIATRIC HISTORY: Patient claims that she was in therapy when she was 11 years old. She denies any previous psychiatric hospitalization and denies being on any psychiatric meds in the past. PAST MEDICAL HISTORY: Denies. ALLERGIES: No known drug allergies. CHEMICAL DEPENDENCY HISTORY: Admits to smoking one pack of cigarettes per day. Denies any other recreational drugs and denies any alcohol use. FAMILY PSYCHIATRIC HISTORY: He claims that her brother and sister both have some sort of mental illness however claims that there are not diagnosed.. LEGAL HISTORY: Denies. SOCIAL HISTORY: Patient grew up in [facility] and now lives in [facility]. Patient is and has 1 daughter and lives in a house, currently unemployed. Patient states that she completed high school and went to [employer] however did not obtain a degree MENTAL STATUS EXAM: General Appearance: Patient is sitting in bed with hospital gown. To have poor grooming and fair hygiene tearful however is calm and cooperative. Patient appears her stated age Behavior: Patient appears restless in her bed however is cooperative. Speech: Patient's speech is fluent and nonpressured. Mood/Affect: Patient reports their mood is depressed, affect is congruent and constricted Suicidality/Homicidality: Patient admits to fleeting suicidal ideations however no intent or plan currently. She denies any homicidal ideations intent or plan. Perceptions: Patient denies any auditory or visual hallucinations. Though content/process: There is no evidence of any delusional thought content and thought process is linear and goal-directed. Memory and concentration: AOX3, grossly intact for the purposes of this session. Can spell WORLD backwards. Judgment and insight: Poor STRENGTHS/WEAKNESSES: Good social support INTELLECT: Average intelligence IMPRESSIONS: Major depressive disorder, moderate-severe Nicotine use disorder PLAN: -Patient is admitted under voluntary status to MHU for stabilization of psychiatric symptoms and safety. Patient signed voluntary form and is placed in chart. -Will start patient on Zoloft 50 mg daily for mood with a plan to increase 100 mg daily at bedtime on Wednesday. Also started trazodone 50 mg daily at bedtime when necessary for insomnia and mood. -Ativan PRN for agitation/aggression -Will continue to closely monitor patient's CPK and LFTs. Currently they are improving. We'll check an a.m. CPK and LFT. -Patient was informed of the risks, benefits and side effects of the medication and patient verbally consented to taking the medications. Patient signed med consent form and was placed in chart. -NRT was offered and patient declined -SW on board for discharge planning 06/16/19 16:32
[2019-06-16] MEDS: SERTRALINE 50 MG TAB PO SCH (16:40)
[2019-06-17] MEDS: SERTRALINE 50 MG TAB PO SCH (07:59)
[2019-06-17] MEDS: NICOTINE 21MG/24HR PATCH TRANSDERM SCH (08:38)
--- NOTE | 2019-06-17 11:07 | P.PN ---
Progress Note - Text Interval history: The patient is found in the hallway she follows me to an interview room. She was admitted to the mental health unit after a premeditated suicide attempt with numerous sleeping pills. She was medically hospitalized and then later transferred to this unit. She described the detail which she took to execute her suicide attempt. She states she feels better today. She states that she has proven to herself that she does not want to commit suicide. We reviewed her laboratory studies. Her CPK is mildly reduced. Liver function enzymes were reviewed. She has been attending groups. She did sleep last night but states that it was fragmented. She's been placed on Zoloft. We discussed that medication and her questions were answered. She states that she would rather not use the trazodone. Mental status exam: The patient is alert she is pleasant and cooperative she is dressed in her own clothing hygiene grooming adequate. Speech is fluent and spontaneous nonpressured. She is rather articulate. She demonstrates a linear thought process. There is no tangential thinking loose associations or flight of ideas. She reports no current suicidal or homicidal ideation intent or plan. She is reporting no auditory or visual hallucinations or any specific delusions. There is no observed evidence of psychosis hypomania or catalina. He is oriented to person place and date. She demonstrates no verbal or physical aggressiveness. Affect is euthymic in appearance and is appropriately expressive. Impression/plan: Symptoms of depression, the patient's been placed on Zoloft we will continue that medication. It is planned to be increased to 100 mg tomorrow. We will monitor her for safety. Internal medicine is monitoring her CPK and liver function enzymes. Vital signs reviewed.
[2019-06-17 14:25] LABS: Hemoglobin A1C 5.3 % (4.0-6.0)
--- NOTE | 2019-06-17 15:59 | P.HPMEDMHU ---
History of Present Illness H&P Date: 06/17/19 (Delayed charting seen at 30) Chief Complaint: Depression Patient is a 44-year-old female well-known to our service secondary to recent medical admission for diphenhydramine overdose, rhabdomyolysis, and elevated transaminitis. She received IV fluids and had improvement in her CPK and liver enzymes and therefore was cleared for treatment on the mental health unit. We've been asked to evaluate her for H&P and continue treatment of her rhabdo. Patient seen and examined at bedside. She is no longer having any joint pain, she is able to walk well, she feels slightly bloated due to her oral fluid intake. She denies any nausea or vomiting. Denies any dysuria, no constipation. No chest pain or shortness of breath. She is overall feeling much better than her initial stay. She is feeling grateful to be here. Review of Systems Pertinent positives and negatives as discussed in HPI, a complete review of systems was performed and all other systems are negative. Past Medical History Past Medical History: No Reported History History of Any Multi-Drug Resistant Organisms: None Reported Past Surgical History: No Surgical Hx Reported Past Psychological History: No Psychological Hx Reported Smoking Status: Current every day smoker Past Alcohol Use History: Occasional Additional Past Alcohol Use History / Comment(s): PT DRINKS ABOUT Q 2 WEEKS ABOUT 8 DRINKS SOCAILLY WITH FRIENDS Past Drug Use History: None Reported - Past Family History Mother Family Medical History: Cancer, Hypertension, Thyroid Disorder Father Family Medical History: Cancer, Hypertension Medications and Allergies Home Medications Medication Instructions Recorded Confirmed Type Ranitidine HCl [Zantac] 75 mg PO DAILY 06/14/19 06/14/19 History Allergies Allergy/AdvReac Type Severity Reaction Status Date / Time No Known Allergies Allergy Verified 06/16/19 16:54 Physical Exam Osteopathic Statement: *. No significant issues noted on an osteopathic structural exam other than those noted in the History and Physical/Consult. Vitals: Vital Signs Temp Pulse Resp BP Pulse Ox 06/17/19 06:39 97.9 F 97 18 161/73 06/16/19 15:56 97.3 F L 86 18 136/85 99 General: non toxic, no distress, appears at stated age, normal weight Derm: Multiple areas of small abrasions, no unusual rashes/lesions no unusual ecchymoses, warm, dry Head: atraumatic, normocephalic, symmetric Eyes: EOMI, no lid lag, anicteric sclera, pupils equal round reactive to light ENT: Nose and ears atraumatic, no thrush, no pharyngeal erythema Neck: No thyromegaly, no cervical lymphadenopathy, trachea midline, supple Mouth: no lip lesion, mucus membranes moist Cardiovascular: S1S2 reg, no murmur, positive posterior tibial pulse bilateral, no edema, capillary refill less than 2 seconds Lungs: CTA bilateral, no rhonchi, no rales , no accessory muscle use Abdominal: soft, nontender to palpation, no guarding, no appreciable organomegaly, normal bowel sounds Ext: no gross muscle atrophy, muscle strength 5 out of 5 in all 4 extremities grossly, no contractures, Neuro: CN II-XI grossly intact, light touch intact all 4 extremities, finger to nose within normal limits, Psych: Alert, oriented, appropriate affect Cranial Nerve Examination - Cranial Nerves Cranial Nerve II- Optic: Intact Cranial Nerve III- Oculomotor: Intact Cranial Nerve IV- Trochlear: Intact Cranial Nerve V- Trigeminal: Intact Cranial Nerve - Abducens: Intact Cranial Nerve VII- Facial: Intact Cranial Nerve VIII- Auditory: Intact Cranial Nerve IX- Glossopharyngeal: Intact Cranial Nerve X- Vagus: Intact Cranial Nerve XI- Accessory: Intact Cranial Nerve XII- Hypoglossal: Intact Results Labs: Abnormal Lab Results - Last 24 Hours (Table) 06/17/19 Range/Units 06:58 AST 381 H (14-36) U/L ALT 102 H (9-52) U/L Creatine Kinase 79998 H* (30-135) U/L Thrombosis Risk Factor Assmnt - DVT/VTE Prophylaxis DVT/VTE Prophylaxis: Pharmacologic Prophylaxis ordered - Choose All That Apply Any of the Below Risk Factors Present?: No Other Risk Factors: No Other congenital or acquired thrombophilia - If yes, enter type in comment: No Thrombosis Risk Factor Assessment Level: Very Low Risk Assessment and Plan Assessment: Anticholinergic overdose, improving -Continue with treatment -Monitor for signs of urinary retention and constipation Rhabdo -CPKs continued downtrend no Jesu -We'll repeat CPK in a.m. -Continue oral fluid hydration. If CPKs increase may need to restart IV fluids and transferred back to medical. Transaminitis -Likely reflective of rhabdo -Continue to follow -Hepatitis profile and liver ultrasound were negative Tobacco abuse -Cessation -Nicotine replacement
[2019-06-18 08:24] LABS: ALT 122 U/L (9-52); AST 397 U/L (14-36); African American GFR (CKD) >90 (>60 ml/min/1.73 sqM); Albumin 3.8 g/dL (3.5-5.0); Alkaline Phosphatase 64 U/L (38-126); Anion Gap 5 mmol/L; Blood Urea Nitrogen 7 mg/dL (7-17); Calcium 9.5 mg/dL (8.4-10.2); Carbon Dioxide 28 mmol/L (22-30); Chloride 106 mmol/L (98-107); Glucose 95 mg/dL (74-99); Potassium 4.6 mmol/L (3.5-5.1); Sodium 139 mmol/L (137-145); Total Bilirubin 0.6 mg/dL (0.2-1.3); Total Protein 6.4 g/dL (6.3-8.2)
[2019-06-18 08:40] LABS: Creatine Kinase 9735 U/L (30-135)
[2019-06-18] MEDS ORDERED: SERTRALINE 100 MG TAB PO SCH (09:00)
--- NOTE | 2019-06-18 09:04 | P.PN ---
Progress Note - Text Interval history: The patient is found in the hallway she follows me to an interview room. She indicates her mood is improving. Reporting participation in group. She states she had a good visit from family last evening. Sleep has been difficult due to disturbances on the mental health unit. We reviewed her psychotropic medication she is having no side effects she ask questions that were addressed. In reviewing labs a creatinine kinase is trending down her AST and ALT have trended upward. The only medication she is currently taking is Zoloft. Mental status exam: The patient is alert she is pleasant and cooperative. She is dressed in her own clothing hygiene grooming are good. She reports a mood is improving. She states she still has depression but has convinced herself that she does not wish to commit suicide anymore. She is reporting no suicidal ideation intent or plan. She is reporting no homicidal ideation intent or plan. She endorses no symptoms of psychosis. She does not appear to demonstrate any symptoms of psychosis she does not appear hypomanic or manic. Affect is bright and appropriately expressive. She demonstrates no verbal or physical aggressiveness. Insight and judgment improving. Plan: The Zoloft was scheduled to increase today. Although the Zoloft is probably not causing any elevation in her liver enzymes we will continue the Zoloft 50 mg daily anyhow. We will continue to monitor her for safety and encourage participation in the milieu. Vital signs reviewed. She does appear to be clinically stabilizing.
[2019-06-18] MEDS: NICOTINE 21MG/24HR PATCH TRANSDERM SCH (09:33)
[2019-06-18] MEDS: SERTRALINE 50 MG TAB PO SCH (09:34)
[2019-06-19] MEDS: NICOTINE 21MG/24HR PATCH TRANSDERM SCH (08:44)
[2019-06-19] MEDS: SERTRALINE 50 MG TAB PO SCH (08:45)
--- NOTE | 2019-06-19 09:57 | P.PN ---
Progress Note - Text Progress Note Date: 06/19/19 Interval History: Patient was seen in the hallway and was agreeable to speak [facility] Patient was appropriate and answered all questions during interview. Patient states that she had a good weekend overall and says that she is still . At getting used to being on the psychiatric unit. She states that she has been attempting to participating more in groups and find some of them helpful. She states that she also had a visit from her family this weekend and states that they are on board and being supportive. She states that her mood is gradually improving and she denies any anxiety at this time. Patient was preoccupied with her liver function tests and was worried about the damage that was caused. Patient was reassured encouraged to drink fluids. At this time patient denies any suicidal or homical ideations, intent or plan. Patient denies any auditory, visual hallucinations and denies any paranoia or delusions. Patient denies any side effects from the medications and has been compliant with meds. Mental Status Exam: General Appearance: Patient appears to be stated age is alert, pleasant, and cooperative. Behavior: Patient is calmly seated without any agitated behavior. Speech: Patient's speech is fluent and non-pressured. Mood/Affect: Patient reports their mood is improving, affect is congruent and constricted. Suicidality/Homicidality: Patient denies having any suicidal or homicidal ideation intent or plan. Perceptions: Patient denies any auditory or visual hallucinations. Though content/process: There is no evidence of any delusional thought content and thought process is linear and goal-directed Memory and concentration: AOX3, grossly intact for the purposes of this session Judgment and insight: improving Assesment: Major depressive disorder, moderate-severe Nicotine use disorder Plan: -Patient continues to meet criteria for inpatient psychiatric admission for symptom stabilization and safety. -Medications: Will continue Zoloft 50 mg daily for mood and anxiety. We'll consider increasing tomorrow. -Will check AST/AST and CPK levels tomorrow a.m. patient encouraged to drink fluids, staying hydrated to improve LFTs and CPK. -When necessary Ativan for agitation/aggression. -Patient encouraged to go to groups and participate in milieu. -SW on board for discharge planning.
[2019-06-20] MEDS: SERTRALINE 50 MG TAB PO SCH (08:39)
[2019-06-20] MEDS: NICOTINE 21MG/24HR PATCH TRANSDERM SCH (08:39)
[2019-06-20 08:43] LABS: ALT 127 U/L (9-52); AST 202 U/L (14-36); African American GFR (CKD) >90 (>60 ml/min/1.73 sqM); Anion Gap 7 mmol/L; Blood Urea Nitrogen 11 mg/dL (7-17); Calcium 9.8 mg/dL (8.4-10.2); Carbon Dioxide 27 mmol/L (22-30); Chloride 104 mmol/L (98-107); Glucose 142 mg/dL (74-99); Potassium 4.5 mmol/L (3.5-5.1); Sodium 138 mmol/L (137-145)
--- NOTE | 2019-06-20 08:52 | P.PN ---
Progress Note - Text Progress Note Date: 06/20/19 Interval History: Patient was seen in the hallways and was agreeable to speak to telegraphic typewriter operator chief in office. Patient was directable and cooperative during interview. Patient states that she has no Stas complains she states things are getting better. Patient claims that her mood is gradually improving due to the medications and she denies any side effects at this time. She states that she is going to groups and attending to learn different coping skills and to socialize with other patients. Patient slept through the night and playing. Patient states that she is attempting to adhere to 3-4 water cups a day maximum and understands that we are following her liver function tests. Patient denies any manic symptoms at this time. At this time patient denies any suicidal or homical ideations, intent or plan. Patient denies any auditory, visual hallucinations and denies any paranoia or delusions. Patient denies any side effects from the medications and has been compliant with meds. Mental Status Exam: General Appearance: [Patient appears to be stated age is alert, pleasant, and cooperative.] Hygiene and grooming gradually improving. Behavior: [Patient is calmly seated without any agitated behavior.] Speech: Patient's speech is fluent and nonpressured. Mood/Affect: Patient reports their mood is improving, affect is congruent Suicidality/Homicidality: Patient denies having any suicidal or homicidal ideation intent or plan. Perceptions: Patient denies any auditory or visual hallucinations. Though content/process: [There is no evidence of any delusional thought content and thought process is linear and goal-directed.] Memory and concentration: AOX3, grossly intact for the purposes of this session Judgment and insight: Improving Assessment Major depressive disorder, moderate-severe Plan: -Patient continues to meet criteria for inpatient psychiatric admission for symptom stabilization and safety. -Medications: Will plan to increase sertraline to 100 mg today and based on liver function tests and CPK levels. -Fei BMP, AST/AOT, CPK levels this morning, awaiting results. Instructed patient to limit water intake to 3-4 cups per day. -When necessary Ativan for agitation/aggression. -Patient encouraged to attend groups and participate in golden milieu -SW on board for discharge planning.
[2019-06-20 08:59] LABS: Creatine Kinase 1552 U/L (30-135)
[2019-06-21 06:50] VITALS: TEMP 98.1
[2019-06-21] MEDS: NICOTINE 21MG/24HR PATCH TRANSDERM SCH (08:30)
[2019-06-21] MEDS: SERTRALINE 50 MG TAB PO SCH (08:30)
--- NOTE | 2019-06-21 11:28 | P.PN ---
Progress Note - Text Progress Note Date: 06/21/19 Interval History: Patient was seen attending groups today and was agreeable to speak with lyric writer in the office. Patient was directable, and appropriate today. Patient states that her mood is continuing to improve and she is finding herself more "relaxed". She states that her sleep has been on and off and describes some difficulty in initiating sleep. She states that she is reflecting on the overdose attempt and how serious it was and is thankful that her liver is gradually work recovering. Patient asked several times about when she'll be discharge and planned following her discharge from the unit. She states that she has a supportive and family. At this time patient denies any suicidal or homical ideations, intent or plan. Patient denies any auditory, visual hallucinations and denies any paranoia or delusions. Mental Status Exam: General Appearance: [Patient appears to be stated age is alert, pleasant, and cooperative.] Hygiene and grooming gradually improving. Behavior: [Patient is calmly seated without any agitated behavior.] Speech: Patient's speech is fluent and nonpressured. Mood/Affect: Patient reports their mood is improving, affect is congruent Suicidality/Homicidality: Patient denies having any suicidal or homicidal ideation intent or plan. Perceptions: Patient denies any auditory or visual hallucinations. Though content/process: [There is no evidence of any delusional thought content and thought process is linear and goal-directed.] Memory and concentration: AOX3, grossly intact for the purposes of this session Judgment and insight: Improving Assessment Major depressive disorder, moderate-severe Plan: -Patient continues to meet criteria for inpatient psychiatric admission for symptom stabilization and safety. -Medications: Will plan to increase sertraline to 100 mg QHS for mood. Switched to nighttime dosing to possibly assist with insomnia. -Ordered new liver function and creatinine kinase test for Wednesday morning. Liver function tests from yesterday and creatinine kinase show gradual improvement in numbers. Instructed patient to limit water intake to 3-4 cups per day. -When necessary Ativan for agitation/aggression. -Patient encouraged to attend groups and participate in golden milieu -SW on board for discharge planning. Likely discharge Wednesday morning after repeat blood work has been drawn. Patient to be discharged home then with outpatient psychiatric follow-up.
[2019-06-21] MEDS ORDERED: SERTRALINE 50 MG TAB PO ONE (21:00)
[2019-06-22 06:35] VITALS: RESP 16
[2019-06-22] MEDS: NICOTINE 21MG/24HR PATCH TRANSDERM SCH (07:57)
--- NOTE | 2019-06-22 09:49 | P.PN ---
Progress Note - Text Progress Note Date: 06/22/19 Interval History: Patient was seen in the dining room and was agreeable to speak with ad copy writer in the office. Patient was calm directable today and polite. Patient states that she is improving gradually with regards to her mood and anxiety. Patient states that she slept a lot better last night as Zoloft was put in for nighttime dosing instead of during the day. She states that there was quite a bit of commotion lastly from other patients therefore made it harder to sleep. Patient spoke ab out her goals and plans after leaving the hospital and states that she has to live for her daughter and her and claims that she has a good support network. 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 At this time patient denies any suicidal or homical ideations, intent or plan. Patient denies any auditory, visual hallucinations and denies any paranoia or delusions. Patient denies any side effects from the medications and has been compliant with meds. Mental Status Exam: General Appearance: [Patient appears to be stated age is alert, pleasant, and cooperative.] Hygiene and grooming gradually improving. Behavior: [Patient is calmly seated without any agitated behavior.] Speech: Patient's speech is fluent and nonpressured. Mood/Affect: Patient reports their mood is improving, affect is congruent Suicidality/Homicidality: Patient denies having any suicidal or homicidal ideation intent or plan. Perceptions: Patient denies any auditory or visual hallucinations. Though content/process: [There is no evidence of any delusional thought content and thought process is linear and goal-directed.] Memory and concentration: AOX3, grossly intact for the purposes of this session Judgment and insight: Improving Assessment Major depressive disorder, moderate-severe Plan: -Patient continues to meet criteria for inpatient psychiatric admission for symptom stabilization and safety. -Medications: Will continue with sertraline 100 mg QHS for mood. -Ordered new liver function and creatinine kinase test for Wednesday morning. Instructed patient to limit water intake to 3-4 cups per day. -When necessary Ativan for agitation/aggression. -Patient encouraged to attend groups and participate in golden milieu -SW on board for discharge planning. Likely discharge Wednesday morning after repeat blood work has been drawn. Patient to be discharged home then with outpatient psychiatric follow-up. Patient claims her daughter will be picking her up from the hospital.
[2019-06-22] MEDS ORDERED: SERTRALINE 100 MG TAB PO SCH (21:00)
[2019-06-23 06:48] VITALS: BP 144/69; PULSE 83
[2019-06-23] MEDS: NICOTINE 21MG/24HR PATCH TRANSDERM SCH (08:40)
[2019-06-23 10:44] LABS: ALT 67 U/L (9-52); AST 58 U/L (14-36); Creatine Kinase 261 U/L (30-135)
--- NOTE | 2019-06-23 11:57 | P.DS ---
Providers Date of admission: 06/16/19 15:40 Expected date of discharge: 06/23/19 Attending physician: Kang Cortes MD Consults: 06/16/19 16:39 Consult Physician Stat Consulting Provider: Gigi Bentley Consult Reason/Comments: medical management Do you want consulting provider notified?: Yes Primary care physician: Stated None - Discharge Diagnosis(es) (1) Major depress dis, severe Current Visit: Yes Status: Acute Priority: High Hospital Course: Summary of admission note: Patient is a 44-year-old female who is and lives with her and her 25-year-old daughter and is currently unemployed. The patient was admitted to the mental health unit as a transfer from the medical floors after an overdose at at home leading to significant hepatic and muscle injury along with anticholinergic symptoms. Patient presented to the hospital after an overdose of 50 sleep aid tablets, Benadryl, which she took on the afternoon of June 13. She spoke of dealing with several stressors over the past year including financial difficulties and a recent move from the [facility] a [facility]. She also endorses having her mother and her daughter moved back in the house with her. She states that her mother in January of this year and still dealing with the loss. Patient states that she is also having menopausal symptoms and feelings as her "hormones are out of wack". Patient states that her depression has been increasing over the past few months and feels "empty inside". Patient also endorses an increase her in her anxiety and increase in suicidal ideations. She stated that on Wednesday at around 10:00 AM she decided that she was going to overdose on her medications and wanted to end her life. She states that she remembers waking up at approximately 12 PM and hallucinating that her was in the house and that she was disoriented and could not stand up. Patient's found her lying on the floor and called EMS. Patient was tearful and appeared anxious however was calm and cooperative. She states that her depression is persistent and she feels hopeless. At this time patient still has suicidal ideations however does not have any intent or plan. She denies any homicidal ideations intent or plan and denies any auditory or visual hallucinations. She denies any paranoia and does not endorse any delusions. Hospital course: Upon admission to the unit patient was , cooperative and appeared to be isolative. Patient had a depressed affect appeared anxious and mainly kept herself. Patient eventually got along well with other patients on the unit and followed unit protocol. Patient was compliant with his medications and denied any side effects throughout his hospital course. Patient was started on Zoloft 50 mg daily for mood. Patient spoke of her stressors and engaged in therapy both group and individual. patient became more future oriented and learn more coping skills and stress management techniques throughout her stay. Patient was also seen by medical team for history and physical exam. patient had elevated liver enzymes and CPK values on admission and were closely monitored throughout her stay.patient initially had CPK value of 10,964 which decreased to on day of discharge 261. Patient's AST/ALT value on admission was 831/102 and improved to on day of discharge 58/67. Throughout the course of the hospitalization patient gradually improved with regards to mood and became future oriented. On the day of discharge patient spoke of how much she learned in groups and her coping skills that she has gained now. She also spoke of her loving family who offer a great support for her. On day of discharge, she denied any suicidal or homicidal ideations intent or plan denied any auditory or visual hallucinations. Patient denied any paranoia and did not endorse any delusions. Patient does not have a significant history of substance abuse however was counseled on abstaining from all substances including alcohol and marijuana.Patient was also counseled on the medications and need for regular compliance and was encouraged to follow-up with their outpatient appointment for mental health and also for primary care. Mental status exam: General Appearance: Patient appears to be stated age is alert, pleasant, and cooperative. Patient is in no acute distress and has fair hygiene and grooming Behavior: Patient is calmly seated without any agitated behavior. Speech: Patient's speech is fluent and nonpressured. Mood/Affect: Patient reports their mood is better, affect is congruent and euthymic. Suicidality/Homicidality: Patient denies having any suicidal or homicidal i deation intent or plan. Perceptions: Patient denies any auditory or visual hallucinations. Though content/process: There is no evidence of any delusional thought content and thought process is linear and goal-directed. Memory and concentration: AOX3, grossly intact for the purposes of this session. Can spell "WORLD" backwards correctly. Judgment and insight: fair, improved Impression: major depressive disorder, moderate-severe Plan: -Continue with discharge today as patient has improved and stabilized psychiatrically and no longer remains an imminent threat to her self and/or others. -Continue medications: continue with sertraline 100 mg nightly for mood. Patient was encouraged to speak with her outpatient provider about possibly increasing the dose at a later time if needed. -Patient was counseled on the need for medication compliance and appropriate follow-up at mental health and also primary care for medical issues. Patient verbalized understanding and agreed. -Social work to give patient resources for follow-up and appointment at [facility]. -Patient counseled on abstaining from recreational drugs and marijuana and alcohol. -Patient was instructed to return to the hospital or seek immediate medical care if their psychiatric or medical systems do worsen or reoccur. Allergies Allergy/AdvReac Type Severity Reaction Status Date / Time No Known Allergies Allergy Verified 06/16/19 16:54 Laboratory Results Sodium 138 mmol/L (137-145) 06/20/19 08:08 Potassium 4.5 mmol/L (3.5-5.1) 06/20/19 08:08 Chloride 104 mmol/L (98-107) 06/20/19 08:08 Carbon Dioxide 27 mmol/L (22-30) 06/20/19 08:08 Anion Gap 7 mmol/L 06/20/19 08:08 BUN 11 mg/dL (7-17) 06/20/19 08:08 Creatinine 0.66 mg/dL (0.52-1.04) 06/20/19 08:08 Est GFR (CKD-EPI)AfAm >90 (>60 ml/min/1.73 sqM) 06/20/19 08:08 Est GFR (CKD-EPI)NonAf >90 (>60 ml/min/1.73 sqM) 06/20/19 08:08 Glucose 142 mg/dL (74-99) H 06/20/19 08:[address] Glu mg/dL 105 06/17/19 06:58 Hemoglobin A1c 5.3 % (4.0-6.0) 06/17/19 06:58 Calcium 9.8 mg/dL (8.4-10.2) 06/20/19 08:08 Total Bilirubin 0.6 mg/dL (0.2-1.3) 06/18/19 07:27 AST 58 U/L (14-36) H 06/23/19 09:45 ALT 67 U/L (9-52) H 06/23/19 09:45 Alkaline Phosphatase 64 U/L (38-126) 06/18/19 07:27 Creatine Kinase 261 U/L (30-135) H 06/23/19 09:45 Total Protein 6.4 g/dL (6.3-8.2) 06/18/19 07:27 Albumin 3.8 g/dL (3.5-5.0) 06/18/19 07:27 Triglycerides 110 mg/dL (<150) 06/17/19 06:58 Cholesterol 172 mg/dL (<200) 06/17/19 06:58 LDL Cholesterol, Calc 91 mg/dL (0-99) 06/17/19 06:58 HDL Cholesterol 59 mg/dL (40-60) 06/17/19 06:58 TSH 2.880 mIU/L (0.465-4.680) 06/17/19 06:58 Vital Signs Temp 98.1 F 06/23/19 06:47 Pulse 83 06/23/19 06:47 Resp 16 06/23/19 06:47 BP 144/69 06/23/19 06:47 Pulse Ox 99 06/16/19 15:56 Patient Condition at Discharge: Stable Plan - Discharge Summary Discharge Rx Participant: No New Discharge Prescriptions: New Sertraline [Zoloft] 100 mg PO HS #14 tab Discontinued Ranitidine HCl [Zantac] 75 mg PO DAILY Discharge Medication List Sertraline [Zoloft] 100 mg PO HS #14 tab 06/23/19 [Rx] Follow up Appointment(s)/Referral(s): [facility] [Outside] - 06/26/19 2:30 pm (Intake w/ Bonnie) [facility] [NON-STAFF] - 1 Week (June 27, 2019 at 0830. will be there for at least 3 hours for appointment. Please have photo ID and list of any medications that you are taking. ) Patient Instructions/Handouts: Depression (DC), Help Prevent Suicide (DC), Suicide Prevention (DC) Activity/Diet/Wound Care/Special Instructions: Activity and diet as tolerated. No guns or weapons in the home. Take all medications as prescribed, and attend all follow up appointments as scheduled. Refrain from drugs and alcohol not prescribed by your physicians. If in need of medication refills, please go to your primary care physician, or your out patient psychiatric provider. If in crisis, please call , or go the nearest ER, for an evaluation.
== END 2019-06-23 14:33 | disposition home or self-care (01) | DRG 885 ==
LOC: 3MHU 15:40
PROVIDERS: ADMIT Psychiatry & Neurology Psychiatry; ATTEND Psychiatry & Neurology Psychiatry
DX: F32.2 Major depressive disorder, single episode, severe without psychotic features (principal); M62.82 Rhabdomyolysis; F17.210 Nicotine dependence, cigarettes, uncomplicated; G47.00 Insomnia, unspecified; F41.9 Anxiety disorder, unspecified; T45.0X2A Poisoning by antiallergic and antiemetic drugs, intentional self-harm, initial encounter; R74.0 Nonspecific elevation of levels of transaminase and lactic acid dehydrogenase [LDH]; Z71.6 Tobacco abuse counseling; Z63.4 Disappearance and death of family member; Z56.0 Unemployment, unspecified; Z82.49 Family history of ischemic heart disease and other diseases of the circulatory system; Z80.9 Family history of malignant neoplasm, unspecified; Z83.49 Family history of other endocrine, nutritional and metabolic diseases; Z79.899 Other long term (current) drug therapy
CPT/HCPCS: 80048; 80053; 80061; 82550; 83036; 84443; 84450; 84460

== ENCOUNTER → 2020-01-12 | Outpatient (CLI) | payer BC ==
--- NOTE | 2020-01-12 08:54 | US ---
EXAMINATION TYPE: US pelvis complete transvag DATE OF EXAM: 01/12/2020 COMPARISON: NONE CLINICAL HISTORY: N93.8 other specified abnormal uterine and vaginal. Irregular cycles that with skip or be very long and heavy, TECHNIQUE: TA/TV. Transabdominal sonographic images of the pelvis were acquired. Transvaginal sono graphic images were also ordered by physician Date of LMP: In Dec, pt cannot remember exact dates EXAM MEASUREMENTS: Uterus: 9.3 x 6.4 x 5.0 cm Endometrial Stripe: 0.9 cm Right Ovary: 3.6 x 3.0 x 2.9 cm Left Ovary: 2.5 x 2.4 x 1.4 cm 1. Uterus: Anteverted possible 1.5cm posterior fundal fibroid, hypoechoic lesion 2. Endometrium: wnl 3. Right Ovary: 3.0cm simple appearing right cyst seen 4. Left Ovary: wnl 5. Bilateral Adnexa: wnl 6. Posterior cul-de-sac: wnl IMPRESSION: 1. Simple appearing 3.0 cm right ovarian cyst is likely physiologic in this premenopausal female. 2. Endometrial thickness is within normal limits. 3. Posterior fundal intramural hypoechoic 1.5 cm lesion, most commonly a leiomyoma.
== END | disposition home or self-care (01) ==
LOC: RADUSWWP 07:29
PROVIDERS: ATTEND Family Medicine
DX: D25.9 Leiomyoma of uterus, unspecified (principal)
CPT/HCPCS: 76830; 76856

== ENCOUNTER → 2024-05-31 | Outpatient (CLI) | payer OTHER ==
--- NOTE | 2024-05-31 12:08 | XR ---
EXAMINATION TYPE: XR knee complete RT DATE OF EXAM: 05/31/2024 COMPARISON: None HISTORY: Contusion TECHNIQUE: 3 views right knee FINDINGS: No acute fracture or dislocation evident. No joint effusion is evident. Follow up exams can be performed 7-10 days from acute trauma for continued pain IMPRESSION: 1. No acute osseous abnormality right knee.
== END | disposition home or self-care (01) ==
LOC: RADXRMAIN 10:50
PROVIDERS: ATTEND Emergency Medicine
DX: S80.01XA Contusion of right knee, initial encounter (principal)

== ENCOUNTER → 2024-09-23 | Outpatient (CLI) | payer BC ==
[2024-09-23 22:49] LABS: Basophils # (A) 0.03 X 10*3/uL (0.00-0.10); Basophils % (A) 0.4 %; Eosinophils # (A) 0.19 X 10*3/uL (0.04-0.35); Eosinophils % (A) 2.6 %; HCT 47.3 % (37.2-46.3); HGB 15.5 g/dL (12.0-15.0); Lymphocytes # (A) 3.23 X 10*3/uL (0.90-5.00); Lymphocytes % (A) 44.1 %; MCH 30.4 pg (27.0-32.0); MCHC 32.8 g/dL (32.0-37.0); MCV 92.7 FL (80.0-97.0); Mean Platelet Volume 10.2 FL (9.5-12.2); Monocytes # (A) 0.52 X 10*3/uL (0.20-1.00); Monocytes % (A) 7.1 %; NRBC Per 100 WBC 0 X 10*3/uL (0.00-0.01); Neutrophils # (A) 3.33 X 10*3/uL (1.80-7.70); Neutrophils % (A) 45.4 %; Platelet Count 257 X 10*3/uL (140-440); WBC 7.33 X 10*3/uL (4.50-10.00)
[2024-09-23 23:16] LABS: ALT 21 U/L (8-44); AST 21 U/L (13-35); Albumin 4.6 g/dL (3.8-4.9); Albumin/Globulin Ratio 1.77 Ratio (1.60-3.17); Alkaline Phosphatase 106 U/L (41-126); BUN/Creat Ratio 20.14 Ratio (12.00-20.00); Blood Urea Nitrogen 14.1 mg/dL (9.0-27.0); Calcium 9.8 mg/dL (8.7-10.3); Carbon Dioxide 24.2 mmol/L (21.6-31.8); Chloride 105 mmol/L (96-109); Chol/HDL Ratio 3.28 Ratio; Globulin 2.6 g/dL (1.6-3.3); Glucose 82 mg/dL (70-110); LDL Cholesterol,Calculated 128.3 mg/dL (0.0-131.0); Potassium 4.1 mmol/L (3.5-5.5); Sodium 141 mmol/L (135-145); Total Bilirubin 0.4 mg/dL (0.3-1.2); Total Protein 7.2 g/dL (6.2-8.2); VLDL Calculation 16.28 mg/dL (5.00-40.00)
== END | disposition home or self-care (01) ==
LOC: LABWHC1 09:38
PROVIDERS: ATTEND Internal Medicine
DX: Z00.00 Encounter for general adult medical examination without abnormal findings (principal); I10 Essential (primary) hypertension; R53.82 Chronic fatigue, unspecified
CPT/HCPCS: 36415; 80053; 80061; 84443; 85025; 86803

== ENCOUNTER → 2024-09-25 | Outpatient (CLI) | payer BC ==
--- NOTE | 2024-09-27 13:06 | XR ---
EXAMINATION TYPE: XR ribs LT DATE OF EXAM: 09/25/2024 6:44 AM COMPARISON: None. CLINICAL INDICATION: Female, 49 years old with history of R22.9 lump of skin, TECHNIQUE: 2 view(s) obtained through the left ribs. FINDINGS: No displaced rib fractures evident. No pneumothorax is evident on these images. IMPRESSION: 1. No acute osseous abnormalities ( [facility], , 09/27/2024 1:04 PM
== END | disposition home or self-care (01) ==
LOC: RADXRMAIN 06:22
PROVIDERS: ATTEND Internal Medicine
DX: R22.9 Localized swelling, mass and lump, unspecified (principal)

== ENCOUNTER → 2024-11-09 | Outpatient (CLI) | payer BC ==
--- NOTE | 2024-11-13 17:21 | MM ---
Reason for Exam: Screening (asymptomatic). Baseline mammogram. Patient History: Menarche at age 12. First Full-Term at age 18. Postmenopausal. Mother had breast cancer at or over age 50. Risk Values: Leta 5 year model risk: 1.8%. NCI Lifetime model risk: 14.9%. Prior Study Comparison: Patient's first Mammogram. No prior studies available for comparison. Tissue Density: There are scattered areas of fibroglandular density. Findings: Analyzed By CAD. No significant mass, suspicious microcalcification, or other discrete abnormality is seen. Overall Assessment: Negative, BI-RAD 1 Management: Screening Mammogram of both breasts in 1 year. . Patient should continue monthly self-breast exams. A clinical breast exam by your physician is recommended on an annual basis. This exam should not preclude additional follow-up of suspicious palpable abnormalities. Note on Leta scores and lifetime risk: 1. A Leta score greater than 3% is considered moderate risk. If this is the case, consider specialist referral to assess eligibility for a risk reducing agent. 2. If overall lifetime risk for the development of breast cancer is 20% or higher, the patient may qualify for future screening with alternating mammogram and breast MRI. [facility], , 11/13/2024 5:18 PM. Electronically signed and approved by: Amna Schafer M.D. Radiologist
== END ==
LOC: WWCWWP 10:29
PROVIDERS: ATTEND Internal Medicine
DX: Z12.31 Encounter for screening mammogram for malignant neoplasm of breast (principal); R10.32 Left lower quadrant pain; F17.210 Nicotine dependence, cigarettes, uncomplicated; Z78.0 Asymptomatic menopausal state; Z80.3 Family history of malignant neoplasm of breast
CPT/HCPCS: 77067

== ENCOUNTER → 2024-11-23 | Outpatient (CLI) | payer BC ==
--- NOTE | 2024-11-23 08:23 | US ---
EXAMINATION TYPE: US abdomen limited DATE OF EXAM: 11/23/2024 COMPARISON: NONE CLINICAL INDICATION: Female, 49 years old with history of Lump of skin (782.2) (R22.9); Patient feels lump in the LUQ of the abdomen. Patient states it has been there for 9 months, but it has gotten big barbara over the last few months. TECHNIQUE: Scanned LUQ of the abdomen at patient's palpable area of concern *Isoechoic area seen in LUQ: 5.8 x 5.9 x 1.4 cm. FINDINGS: Superficial oval circumscribed heterogeneous lesion as detailed above. No hernia defect. N o concerning fluid collection. IMPRESSION: As above. Findings favor benign etiology such as subcutaneous lipoma. If lesion is felt to continue to enlarge and/or become painful further investigation with CT or MRI would be warranted. [facility], , 11/23/2024 8:21 AM
--- NOTE | 2024-11-23 08:26 | US ---
EXAMINATION TYPE: US abdomen complete DATE OF EXAM: 11/23/2024 COMPARISON: US 2019 CLINICAL INDICATION: Female, 49 years old with history of R22.9 LUMP R10.32 LEFT LOWER QUADRANT PAIN; Pain x 1 year TECHNIQUE: Grayscale and color Doppler imaging of the abdomen was performed. FINDINGS: EXAM MEASUREMENTS: Liver Length: 19.2 cm Gallbladder Wall: 0.19 cm CBD: 0.46 cm, color Doppler imaging was utilized to isolate the common bile duct for measurement. Spleen: 9.9 cm Right Kidney: 10.9 x 5.6 x 4.5 cm Left Kidney: 11.1 x 4.6 x 4.9 cm SCIENCE ANALYST NOTES: Exam is limited due to gas. Pancreas: Tail is not well seen Liver: *Enlarged. Increased echogenicity. Gallbladder: No abnormalities seen. Evidence for sonographic Ballard's sign: No CBD: Appears wnl Spleen: Appears wnl Right Kidney: No hydronephrosis or masses seen Left Kidney: No hydronephrosis or masses seen Upper IVC: Appears wnl Abd Aorta: Appears wnl Aorta is seen to the bifurcation. IVC patent and the hepatic dome. Visualized portion of pancreas is unremarkable. Persistent hepatomegaly. Liver slightly heterogeneously hyperechoic. Suspect mild diffu se fatty infiltration. No obvious focal intrahepatic mass. Kidneys symmetric and normal in size witho ut hydronephrosis. No shadowing mobile gallstones. No biliary dilatation. Spleen is normal in size. IMPRESSION: No acute findings are seen. Mild hepatomegaly is redemonstrated. [facility], , 11/23/2024 8:24 AM
== END | disposition home or self-care (01) ==
LOC: RADUSWWP 06:46
PROVIDERS: ATTEND Internal Medicine
DX: R22.9 Localized swelling, mass and lump, unspecified (principal); R16.0 Hepatomegaly, not elsewhere classified; R19.02 Left upper quadrant abdominal swelling, mass and lump
CPT/HCPCS: 76700; 76705